=== PATIENT | female | born 1985 | race Caucasian/White ===

== ENCOUNTER 2019-01-05 21:46 | Inpatient (IN) | payer SELFPAY ==
[~2019-01-05] VITALS: Ht 160 cm; Wt 68.5 kg
--- NOTE | 2019-01-05 22:31 | PHYS DOC ---
Past Medical History Past Medical History: Other Additional Past Medical Histor: gestational diabetes Past Surgical History: Tubal ligation Alcohol Use: Rarely Drug Use: None Adult General Chief Complaint Chief Complaint: HEADACHE HPI HPI Interpretation phone used for history 33-year-old female presents to emergency Department with complaints of headache, right facial droop, weakness in her right upper extremity. She states symptoms started around noon today with a headache have been somewhat progressive. She describes a weird sensation in her upper extremity and crampiness. States her arm just feels weak. She does complain of nausea, intermittent chest pain. She feels tired. Nothing makes her symptoms worse or better, she states she has a difference in feeling on her right side compared to the left. She has no history of migraine headaches however states she had a similar headache last week. Review of Systems Review of Systems Constitutional: Denies fever or chills [] Eyes: Denies change in visual acuity, redness, or eye pain [] Respiratory: Denies cough or shortness of breath [] Cardiovascular: No additional information not addressed in HPI [] GI: Denies abdominal pain, +nausea : Denies dysuria or hematuria [] Musculoskeletal: Denies back pain or joint pain [] Integument: Denies rash or skin lesions [] Neurologic: Headache, right facial droop All other systems were reviewed and found to be within normal limits, except as documented in this note. Allergies Allergies Allergies Coded Allergies Type Severity Reaction Last Updated Verified No Known Drug Allergies 02/20/14 No Physical Exam Physical Exam Constitutional: Well developed, well nourished, no acute distress, non-toxic appearance. [] HENT: Normocephalic, atraumatic, bilateral external ears normal, oropharynx moist, no oral exudates, nose normal. [] Eyes: PERRLA, EOMI, conjunctiva normal, no discharge. [] Cardiovascular:Heart rate regular rhythm, no murmur [] Lungs & Thorax: Bilateral breath sounds clear to auscultation [] Abdomen: Bowel sounds normal, soft, no tenderness, no masses, no pulsatile masses. [] Skin: Warm, dry, no erythema, no rash. [] Extremities: No tenderness, no cyanosis, no edema. [] Neurologic: Alert and oriented X 3, no focal deficits noted. See NIHSS[] Psychologic: Affect normal, judgement normal, mood normal. [] Current Patient Data Vital Signs Vital Signs Date Time Temp Pulse Resp B/P (MAP) Pulse Ox O2 Delivery O2 Flow Rate FiO2 01/05/19 22:01 98.1 96 18 155/102 (119) 100 Room Air 98.1 Lab Values Laboratory Tests Test 01/05/19 21:55 White Blood Count 7.4 x10^3/uL (4.0-11.0) Red Blood Count 4.68 x10^6/uL (3.50-5.40) Hemoglobin 14.3 g/dL (12.0-15.5) Hematocrit 41.7 % (36.0-47.0) Mean Corpuscular Volume 89 fL (79-100) Mean Corpuscular Hemoglobin 31 pg (25-35) Mean Corpuscular Hemoglobin Concent 34 g/dL (31-37) Red Cell Distribution Width 13.0 % (11.5-14.5) Platelet Count 317 x10^3/uL (140-400) Neutrophils (%) (Auto) 57 % (31-73) Lymphocytes (%) (Auto) 37 % (24-48) Monocytes (%) (Auto) 5 % (0-9) Eosinophils (%) (Auto) 1 % (0-3) Basophils (%) (Auto) 1 % (0-3) Neutrophils # (Auto) 4.2 x10^3/uL (1.8-7.7) Lymphocytes # (Auto) 2.7 x10^3/uL (1.0-4.8) Monocytes # (Auto) 0.4 x10^3/uL (0.0-1.1) Eosinophils # (Auto) 0.1 x10^3/uL (0.0-0.7) Basophils # (Auto) 0.0 x10^3/uL (0.0-0.2) Laboratory Tests 01/05/19 21:55 EKG EKG EKG reveals normal sinus rhythm, heart rate 75, no evidence of acute ST or T wave change.[] Interpretation Time: Interpretation time 2238 Radiology/Procedures Radiology/Procedures [] Course & Med Decision Making Course & Med Decision Making Pertinent Labs and Imaging studies reviewed. (See chart for details) []33-year-old female presents to emergency Department with complaints of headache, right facial droop, weakness in her right upper extremity. She states symptoms started around noon today with a headache have been somewhat p rogressive. She describes a weird sensation in her upper extremity and crampiness. States her arm just feels weak. She does complain of nausea, intermittent chest pain. She feels tired. Nothing makes her symptoms worse or better, she states she has a difference in feeling on her right side compared to the left. She has no history of migraine headaches however states she had a similar headache last week. Dragon Disclaimer Dragon Disclaimer This electronic medical record was generated, in whole or in part, using a voice recognition dictation system. NIHSS Stroke Scale NIH Stroke Scale: NIH Stroke Scale Response (Comments) Value Level of Consciousness: 0 Alert/Responsive 0 LOC Questions: 0 Answers both correctly 0 LOC Commands: 0 Performs both tasks 0 Best Gaze: 0 Normal 0 Visual: 0 No visual loss 0 Facial Palsy: 2 Partial paralysis 2 Motor - Left Arm 0 No drift 0 Motor - Right Arm 0 No drift 0 Motor - Left Leg 0 No drift 0 Motor: Right Leg 0 No drift 0 Limb Ataxia: 1 One limb 1 Sensory: 0 No loss 0 Best Language: 0 Normal 0 Dysathria: 0 Normal 0 Extinction and Inattention: 0 Normal 0 Total 3 Departure Departure Referrals: NON,STAFF (PCP) ERLIN HO MD Jan 05, 2019 22:31
[2019-01-05 22:43] LABS: BASO % 1 % (0-3); EOS # 0.1 x10^3/uL (0.0-0.7); EOS % 1 % (0-3); HEMATOCRIT 41.7 % (36.0-47.0); HEMOGLOBIN 14.3 g/dL (12.0-15.5); LYMPH # 2.7 x10^3/uL (1.0-4.8); LYMPH % 37 % (24-48); MEAN CORPUSCULAR HEMOGLOBIN 31 pg (25-35); MEAN CORPUSCULAR HGB CONC 34 g/dL (31-37); MEAN CORPUSCULAR VOLUME 89 fL (79-100); MONO # 0.4 x10^3/uL (0.0-1.1); MONO % 5 % (0-9); NEUT # 4.2 x10^3/uL (1.8-7.7); NEUT % 57 % (31-73); PLATELET COUNT 317 x10^3/uL (140-400); RED BLOOD COUNT 4.68 x10^6/uL (3.50-5.40); WHITE BLOOD COUNT 7.4 x10^3/uL (4.0-11.0)
[2019-01-05 22:53] LABS: CALCIUM 9.4 mg/dL (8.5-10.1); CREATININE 0.7 mg/dL (0.6-1.0); GFR 95.8; POTASSIUM 3.3 mmol/L (3.5-5.1)
[2019-01-05 22:59] LABS: ALBUMIN 4.3 g/dL (3.4-5.0); TOTAL BILIRUBIN 0.3 mg/dL (0.2-1.0); TOTAL PROTEIN 8.4 g/dL (6.4-8.2)
--- NOTE | 2019-01-05 23:21 | RAD ---
CT HEAD INDICATION: Right-sided facial droop COMPARISON: 02/20/2014 Exposure: One or more of the following individualized dose reduction techniques were utilized for this examination: 1. Automated exposure control 2. Adjustment of the mA and/or kV according to patient size 3. Use of iterative reconstruction technique TECHNIQUE: 5 mm contiguous axial images were obtained from the skull base to the vertex in both bone and soft tissue algorithm. FINDINGS: No abnormal attenuation within the brain parenchyma. Small left anterior middle cranial fossa arachnoid cyst identified similar to prior exam. No evidence of acute intracranial hemorrhage. No extra-axial fluid collections. No mass effect or midline shift. Ventricular size is appropriate. Basal cisterns are patent. No fractures identified.Bridges-white differentiation is preserved.Globes and orbits are within normal limits. Paranasal sinuses and mastoid air cells are clear. IMPRESSION: No acute intracranial findings. Electronically signed by: Tony Steward MD (01/05/2019 11:18 PM) [facility]
[2019-01-06] MEDS ORDERED: KETOROLAC 30 MG/ML VIAL. IV ONE (00:15)
[2019-01-06] MEDS ORDERED: diphenhydrAMINE 50 MG/ML VIAL IVP ONE (00:15)
[2019-01-06] MEDS ORDERED: METOCLOPRAMIDE HCL 10 MG/2 ML VIAL. IV ONE (00:15)
[2019-01-06] MEDS ORDERED: IV NORMAL SALINE 1000ML BAG 1,000 ML IV ONE (00:45)
[2019-01-06] MEDS ORDERED: ONDANSETRON PF 4 MG/2 ML VIAL. IV PRN (02:00)
[2019-01-06] MEDS ORDERED: ACETAMINOPHEN 325 MG TABLET. PO PRN (02:00)
[2019-01-06] MEDS ORDERED: ASPIRIN 325 MG TABLET PO ONE (02:00)
[2019-01-06 03:00] VITALS: BP 105/68
--- NOTE | 2019-01-06 03:45 | PHYS DOC ---
Past Medical History Past Medical History: Other Additional Past Medical Histor: gestational diabetes Past Surgical History: Tubal ligation Alcohol Use: Rarely Drug Use: None Adult General Chief Complaint Chief Complaint: HEADACHE HPI HPI Interpretation phone used for history 33-year-old female presents to emergency Department with complaints of headache, right facial droop, weakness in her right upper extremity. She states symptoms started around noon today with a headache have been somewhat progressive. She describes a weird sensation in her upper extremity and crampiness. States her arm just feels weak. She does complain of nausea, intermittent chest pain. She feels tired. Nothing makes her symptoms worse or better, she states she has a difference in feeling on her right side compared to the left. She has no history of migraine headaches however states she had a similar headache last week. Review of Systems Review of Systems Constitutional: Denies fever or chills [] Respiratory: Denies cough or shortness of breath [] Cardiovascular: No additional information not addressed in HPI [] GI: + nausea, Denies abdominal pain, vomiting, bloody stools or diarrhea [] : Denies dysuria or hematuria [] Musculoskeletal: Denies back pain or joint pain [] Integument: Denies rash or skin lesions [] Neurologic: + headache, weakness RUE, right facial droop All other systems were reviewed and found to be within normal limits, except as documented in this note. Current Medications Current Medications Current Medications Medications (Trade) Dose Ordered Sig/Soraya Start Time Stop Time Status Last Admin Dose Admin Acetaminophen (Tylenol) 650 mg PRN Q4HRS PRN 01/06/19 02:00 01/07/19 01:59 Aspirin (Latanya Aspirin) 325 mg 1X ONCE 01/06/19 02:00 01/06/19 02:01 DC 01/06/19 03:00 325 MG Diphenhydramine HCl (Benadryl) 25 mg 1X ONCE 01/06/19 00:15 01/06/19 00:17 DC 01/06/19 00:22 25 MG Ketorolac Tromethamine (Toradol 30mg Vial) 30 mg 1X ONCE 01/06/19 00:15 01/06/19 00:17 DC 01/06/19 00:22 30 MG Lorazepam (Ativan Inj) 1 mg 1X ONCE 01/06/19 00:45 01/06/19 00:46 DC 01/06/19 00:43 1 MG Metoclopramide HCl (Reglan Vial) 10 mg 1X ONCE 01/06/19 00:15 01/06/19 00:17 DC 01/06/19 00:22 10 MG Ondansetron HCl (Zofran) 4 mg PRN Q8HRS PRN 01/06/19 02:00 01/07/19 01:59 Sodium Chloride 1,000 ml @ 1,000 mls/hr 1X ONCE 01/06/19 00:45 01/06/19 01:44 DC 01/06/19 00:44 1,000 MLS/HR Allergies Allergies Allergies Coded Allergies Type Severity Reaction Last Updated Verified No Known Drug Allergies 02/20/14 No Physical Exam Physical Exam Constitutional: Well developed, well nourished, no acute distress, non-toxic appearance. [] HENT: Normocephalic, atraumatic, bilateral external ears normal, oropharynx moist, no oral exudates, nose normal. [] Eyes: PERRLA, EOMI, conjunctiva normal, no discharge. [] Cardiovascular:Heart rate regular rhythm, no murmur [] Lungs & Thorax: Bilateral breath sounds clear to auscultation [] Abdomen: Bowel sounds normal, soft, no tenderness, no masses, no pulsatile masses. [] Skin: Warm, dry, no erythema, no rash. [] Extremities: No tenderness, no cyanosis, no clubbing, ROM intact, no edema. [] Neurologic: Alert and oriented X 3, right upper extremity weakness, right facial droop[] Psychologic: Affect normal, judgement normal, mood normal. [] Current Patient Data Vital Signs Vital Signs Date Time Temp Pulse Resp B/P (MAP) Pulse Ox O2 Delivery O2 Flow Rate FiO2 01/06/19 01:54 86 18 97 01/05/19 22:01 98.1 155/102 (119) Room Air 98.1 Lab Values Laboratory Tests Test 01/05/19 21:55 White Blood Count 7.4 x10^3/uL (4.0-11.0) Red Blood Count 4.68 x10^6/uL (3.50-5.40) Hemoglobin 14.3 g/dL (12.0-15.5) Hematocrit 41.7 % (36.0-47.0) Mean Corpuscular Volume 89 fL (79-100) Mean Corpuscular Hemoglobin 31 pg (25-35) Mean Corpuscular Hemoglobin Concent 34 g/dL (31-37) Red Cell Distribution Width 13.0 % (11.5-14.5) Platelet Count 317 x10^3/uL (140-400) Neutrophils (%) (Auto) 57 % (31-73) Lymphocytes (%) (Auto) 37 % (24-48) Monocytes (%) (Auto) 5 % (0-9) Eosinophils (%) (Auto) 1 % (0-3) Basophils (%) (Auto) 1 % (0-3) Neutrophils # (Auto) 4.2 x10^3/uL (1.8-7.7) Lymphocytes # (Auto) 2.7 x10^3/uL (1.0-4.8) Monocytes # (Auto) 0.4 x10^3/uL (0.0-1.1) Eosinophils # (Auto) 0.1 x10^3/uL (0.0-0.7) Basophils # (Auto) 0.0 x10^3/uL (0.0-0.2) Sodium Level 140 mmol/L (136-145) Potassium Level 3.3 mmol/L (3.5-5.1) L Chloride Level 101 mmol/L (98-107) Carbon Dioxide Level 29 mmol/L (21-32) Anion Gap 10 (6-14) Blood Urea Nitrogen 14 mg/dL (7-20) Creatinine 0.7 mg/dL (0.6-1.0) Estimated GFR (Cockcroft-Gault) 95.8 BUN/Creatinine Ratio 20 (6-20) Glucose Level 95 mg/dL (70-99) Calcium Level 9.4 mg/dL (8.5-10.1) Total Bilirubin 0.3 mg/dL (0.2-1.0) Aspartate Amino Transferase (AST) 15 U/L (15-37) Alanine Aminotransferase (ALT) 18 U/L (14-59) Alkaline Phosphatase 110 U/L (46-116) Troponin I Quantitative < 0.017 ng/mL (0.000-0.055) Total Protein 8.4 g/dL (6.4-8.2) H Albumin 4.3 g/dL (3.4-5.0) Albumin/Globulin Ratio 1.0 (1.0-1.7) Laboratory Tests 01/05/19 21:55 Laboratory Tests 01/05/19 21:55 EKG EKG []EKG reveals normal sinus rhythm, heart rate 75, no evidence of acute ST or T wave change.[] Interpretation Time: 2238 Radiology/Procedures Radiology/Procedures [facility] [address] [place] [address] IMAGING REPORT Signed PATIENT: YUNI WATKINS ACCOUNT: [id number] : 1985 LOCATION: ER AGE: 33 SEX: F EXAM STATUS: REG ER ORD. PHYSICIAN: ERLIN HO MD REASON: right facial droop, right upper ext weakness onest around noon PROCEDURE: CT HEAD WO CONTRAST CT HEAD INDICATION: Right-sided facial droop COMPARISON: 02/20/2014 Exposure: One or more of the following individualized dose reduction techniques were utilized for this examination: 1. Automated exposure control 2. Adjustment of the mA and/or kV according to patient size 3. Use of iterative reconstruction technique TECHNIQUE: 5 mm contiguous axial images were obtained from the skull base to the vertex in both bone and soft tissue algorithm. FINDINGS: No abnormal attenuation within the brain parenchyma. Small left anterior middle cranial fossa arachnoid cyst identified similar to prior exam. No evidence of acute intracranial hemorrhage. No extra-axial fluid collections. No mass effect or midline shift. Ventricular size is appropriate. Basal cisterns are patent. No fractures identified.Bridges-white differentiation is preserved.Globes and orbits are within normal limits. Paranasal sinuses and mastoid air cells are clear. IMPRESSION: No acute intracranial findings. Electronically signed by: Tony Steward MD (01/05/2019 11:18 PM) [facility] DICTATED and SIGNED BY: TONY STEWARD MD DATE: 01/05/19 2318 [] Course & Med Decision Making Course & Med Decision Making Pertinent Labs and Imaging studies reviewed. (See chart for details) []33-year-old female presents to emergency Department with complaints of headache, right facial droop, weakness in her right upper extremity. She states symptoms started around noon today with a headache have been somewhat progressive. She describes a weird sensation in her upper extremity and crampiness. States her arm just feels weak. She does complain of nausea, intermittent chest pain. She feels tired. Nothing makes her symptoms worse or better, she states she has a difference in feeling on her right side compared to the left. She has no history of migraine headaches however states she had a similar headache last week. Labs, imaging reviewed. CT head without acute process. Given patient's symptoms Toradol, Reglan, Benadryl provided. Patient's headache and a facial droop improved however she continued to have right upper chest area weakness. Given her continued symptoms would recommend further evaluation and observation. Ca rdiac enzymes �1 set negative. EKG as discussed above. Symptoms again likely secondary to complex migraine however given persistent symptoms would need further imaging to rule out stroke. Admit to HOSPITALIST. Abebe Disclaimer Abebe Disclaimer This electronic medical record was generated, in whole or in part, using a voice recognition dictation system. Departure Departure Impression: Primary Impression: Chest pain Additional Impressions: RUE weakness Facial droop Migraine Disposition: ADMITTED INPATIENT Admitting Physician: HIMMarcos Condition: IMPROVED Referrals: NO PCP (PCP) Problem Qualifiers Primary Impression: Chest pain Chest pain type: unspecified Qualified Codes: R07.9 - Chest pain, unspecified Additional Impressions: Migraine Migraine type: unspecified Status migrainosus presence: without status migrainosus Intractability: not intractable Qualified Codes: G43.909 - Migraine, unspecified, not intractable, without status migrainosus ERLIN HO MD Jan 06, 2019 03:45
[2019-01-06] MEDS ORDERED: no home meds (04:35)
[2019-01-06] MEDS ORDERED: INFLUENZA VAX SCREEN BY RX. MC PRN (05:30)
[2019-01-06 07:32] VITALS: BP 102/63
--- NOTE | 2019-01-06 08:04 | PDOC1 ---
History and Physical Date of Admission Date of Admission DATE: 01/06/19 TIME: 07:59 Identification/Chief Complaint Chief Complaint Chest pain, facial droop, RUE weak Source Source: Patient History of Present Illness History of Present Illness Ms Vera is a 33yo F w/ PMHx gestational DM who presents to ED c/o headache, right facial droop, weakness in her right upper extremity. She states symptoms started around noon 01/05 with a headache have been somewhat progressive. She describes a weird sensation in her upper extremity and cramping with pain in her shoulder. States her arm just feels weak. She does complain of nausea, intermittent chest pain. She feels tired. Nothing makes her symptoms worse or better, she states she has a difference in feeling on her right side compared to the left including arm and leg. Her headache is right sided, temporal and occipital. She has decreased sensation on the left side of her face and left facial droop. She has no history of migraine headaches however states she had a similar headache last week. K 3.3, otherwise labs WNL. CXR with no acute abnormality. CT head without acute process. EKG was NSR with no ST or T-wave changes. Cardiac enzymes �1 set negative. ED administered Toradol, Reglan, Benadryl provided. Patient's headache and a facial droop improved however she continued to have right upper chest area weakness. Given her continued symptoms she was admitted for further evaluation and observation. Past Medical History Cardiovascular: No pertinent hx Pulmonary: No pertinent hx GI: No pertinent hx Heme/Onc: No pertinent hx Hepatobiliary: No pertinent hx Psych: No pertinent hx Rheumatologic: No pertinent hx Infectious disease: No pertinent hx ENT: No pertinent hx Renal/: No pertinent hx Endocrine: No pertinent hx Dermatology: No pertinent hx Family History Family History: Diabetes, High Cholestrol, Hypertension Social History Smoke: No ALCOHOL: none Drugs: None Current Problem List Problem List Problems Medical Problems: (1) Chest pain Status: Acute (2) Facial droop Status: Acute (3) Migraine Status: Acute (4) RUE weakness Status: Acute Current Medications Current Medications Current Medications Ketorolac Tromethamine (Toradol 30mg Vial) 30 mg 1X ONCE IV Last administered on 01/06/19at 00:22; Start 01/06/19 at 00:15; Stop 01/06/19 at 00:17; Status DC Metoclopramide HCl (Reglan Vial) 10 mg 1X ONCE IV Last administered on 01/06/19at 00:22; Start 01/06/19 at 00:15; Stop 01/06/19 at 00:17; Status DC Diphenhydramine HCl (Benadryl) 25 mg 1X ONCE IVP Last administered on 01/06/19at 00:22; Start 01/06/19 at 00:15; Stop 01/06/19 at 00:17; Status DC Lorazepam (Ativan Inj) 2 mg STK-MED ONCE .ROUTE ; Start 01/06/19 at 00:35; Stop 01/06/19 at 00:35; Status DC Lorazepam (Ativan Inj) 1 mg 1X ONCE IV Last administered on 01/06/19at 00:43; Start 01/06/19 at 00:45; Stop 01/06/19 at 00:46; Status DC Sodium Chloride 1,000 ml @ 1,000 mls/hr 1X ONCE IV Last administered on 01/06/19at 00:44; Start 01/06/19 at 00:45; Stop 01/06/19 at 01:44; Status DC Ondansetron HCl (Zofran) 4 mg PRN Q8HRS PRN IV NAUSEA/VOMITING; Start 01/06/19 at 02:00; Stop 01/07/19 at 01:59 Acetaminophen (Tylenol) 650 mg PRN Q4HRS PRN PO FEVER; Start 01/06/19 at 02:00; Stop 01/07/19 at 01:59 Aspirin (Latanya Aspirin) 325 mg 1X ONCE PO Last administered on 01/06/19at 03:00; Start 01/06/19 at 02:00; Stop 01/06/19 at 02:01; Status DC Influenza Virus Vaccine Quadrival (Afluria Quad 2019-20 (3yr Up) Syringe) 0.5 ml ONCE ONCE VAX IM ; Start 01/06/19 at 09:00; Stop 01/06/19 at 09:01 Info (FLU VACCINE SCREEN per RX) 1 each PRN 1X PRN MC SEE COMMENTS; Start 01/06/19 at 05:30; Status Cancel Active Scripts Active Reported [no home meds] Allergies Allergies: Coded Allergies: No Known Drug Allergies (Unverified , 02/20/14) ROS General: YES: Fatigue, Malaise; No: Chills, Night Sweats, Appetite, Other PSYCHOLOGICAL ROS: YES: Anxiety; No: Behavioral Disorder, Concentration difficultie, Decreased libido, Depress ion, Disorientation, Hallucinations, Hostility, Irritablity, Memory difficulties, Mood Swings, Obsessive thoughts, Physical abuse, Sexual abuse, Sleep disturbances, Suicidal ideation, Other Eyes: No Blurry vision, No Decreased vision, No Double vision, No Dry eyes, No Excessive tearing, No Eye Pain, No Itchy Eyes, No Loss of vision, No Photophobia, No Scotomata, No Uses contacts, No Uses glasses, No Other HEENT: YES: Heacaches; No: Visual Changes, Hearing change, Nasal congestion, Nasal discharge, Oral lesions, Sinus pain, Sore Throat, Epistaxis, Sneezing, Snoring, Tinnitus, Vertigo, Vocal changes, Other ALLERGY AND IMMUNOLOGY: No: Hives, Insect Bite Sensitivity, Itchy/Watery Eyes, Nasal Congestion, Post Nasal Drip, Seasonal Allergies, Other Hematological and Lymphatic: No: Bleeding Problems, Blood Clots, Blood Transfusions, Brusing, Night Sweats, Pallor, Swollen Lymph Nodes, Other ENDOCRINE: No: Breast Changes, Galactorrhea, Hair Pattern Changes, Hot Flashes, Malaise/lethargy, Mood Swings, Palpitations, Polydipsia/polyuria, Skin Changes, Temperature Intolerance, Unexpected Weight Changes, Other Breast: No New/Changing Breast Lumps, No Nipple changes, No Nipple discharge, No Other Respiratory: No: Cough, Hemoptysis, Orthopnea, Pleuritic Pain, Shortness of breath, SOB with excertion, Sputum Changes, Stridor, Tachypnea, Wheezing, Other Cardiovascular: No Chest Pain, No Palpitations, No Orthopnea, No Paroxysmal Noc. Dyspnea, No Edema, No Lt Headedness, No Other Gastrointestinal: No Nausea, No Vomiting, No Abdominal Pain, No Diarrhea, No Constipation, No Melena, No Hematochezia, No Other Genitourinary: No Dysuria, No Frequency, No Incontinence, No Hematuria, No Retention, No Discharge, No Urgency, No Pain, No Flank Pain, No Other, No , No , No , No , No , No , No Musculoskeletal: Yes Gait Disturbance; No Joint Pain, No Joint Stiffness, No Joint Swelling, No Muscle Pain, No Muscular Weakness, No Pain In:, No Swelling In:, No Other Neurological: Yes Gait Disturbance, Yes Headaches, Yes Impaired Coord/balance, Yes Numbness/Tingling, Yes Weakness; No Behavorial Changes, No Bowel/Bladder ControlChng, No Confusion, No Dizziness, No Memory Loss, No Seizures, No Speech Problems, No Tremors, No Visual Changes, No Other Skin: No Dry Skin, No Eczema, No Hair Changes, No Lumps, No Mole Changes, No Mottling, No Nail Changes, No Pruritus, No Rash, No Skin Lesion Changes, No Other, No Acne Physical Exam General: Alert, Oriented X3, Cooperative, No acute distress HEENT: Atraumatic, PERRLA, EOMI, Mucous membr. moist/pink Lungs: Clear to auscultation, Normal air movement Heart: S1S2, RRR, no gallops, no murmurs Abdomen: Normal bowel sounds, Soft, No tenderness, No hepatosplenomegaly, No masses Rectal Exam: not examined Extremities: No clubbing, No cyanosis, No edema, Normal pulses, No tenderness/swelling, Other (Pain on palpation of right shoulder) Skin: No rashes, No breakdown, No significant lesion Neuro: Normal speech, Normal tone, Reflexes 2+, Other (Decreased left facial sensation and strength. Decreased right awnings mechanic strength. Unsteady gait with poor coordination of right leg noted) Psych/Mental Status: Mental status NL, Mood NL Vitals Vitals Vital Signs Date Time Temp Pulse Resp B/P (MAP) Pulse Ox O2 Delivery O2 Flow Rate FiO2 01/06/19 07:32 98.0 78 18 102/63 (76) 100 Room Air 98.0 Labs Labs Laboratory Tests Test 01/05/19 21:55 01/06/19 03:30 White Blood Count 7.4 x10^3/uL (4.0-11.0) Red Blood Count 4.68 x10^6/uL (3.50-5.40) Hemoglobin 14.3 g/dL (12.0-15.5) Hematocrit 41.7 % (36.0-47.0) Mean Corpuscular Volume 89 fL (79-100) Mean Corpuscular Hemoglobin 31 pg (25-35) Mean Corpuscular Hemoglobin Concent 34 g/dL (31-37) Red Cell Distribution Width 13.0 % (11.5-14.5) Platelet Count 317 x10^3/uL (140-400) Neutrophils (%) (Auto) 57 % (31-73) Lymphocytes (%) (Auto) 37 % (24-48) Monocytes (%) (Auto) 5 % (0-9) Eosinophils (%) (Auto) 1 % (0-3) Basophils (%) (Auto) 1 % (0-3) Neutrophils # (Auto) 4.2 x10^3/uL (1.8-7.7) Lymphocytes # (Auto) 2.7 x10^3/uL (1.0-4.8) Monocytes # (Auto) 0.4 x10^3/uL (0.0-1.1) Eosinophils # (Auto) 0.1 x10^3/uL (0.0-0.7) Basophils # (Auto) 0.0 x10^3/uL (0.0-0.2) Sodium Level 140 mmol/L (136-145) Potassium Level 3.3 mmol/L (3.5-5.1) Chloride Level 101 mmol/L (98-107) Carbon Dioxide Level 29 mmol/L (21-32) Anion Gap 10 (6-14) Blood Urea Nitrogen 14 mg/dL (7-20) Creatinine 0.7 mg/dL (0.6-1.0) Estimated GFR (Cockcroft-Gault) 95.8 BUN/Creatinine Ratio 20 (6-20) Glucose Level 95 mg/dL (70-99) Calcium Level 9.4 mg/dL (8.5-10.1) Total Bilirubin 0.3 mg/dL (0.2-1.0) Aspartate Amino Transf (AST/SGOT) 15 U/L (15-37) Alanine Aminotransferase (ALT/SGPT) 18 U/L (14-59) Alkaline Phosphatase 110 U/L (46-116) Troponin I Quantitative < 0.017 ng/mL (0.000-0.055) < 0.017 ng/mL (0.000-0.055) Total Protein 8.4 g/dL (6.4-8.2) Albumin 4.3 g/dL (3.4-5.0) Albumin/Globulin Ratio 1.0 (1.0-1.7) Laboratory Tests Test 01/05/19 21:55 01/06/19 03:30 White Blood Count 7.4 x10^3/uL (4.0-11.0) Red Blood Count 4.68 x10^6/uL (3.50-5.40) Hemoglobin 14.3 g/dL (12.0-15.5) Hematocrit 41.7 % (36.0-47.0) Mean Corpuscular Volume 89 fL (79-100) Mean Corpuscular Hemoglobin 31 pg (25-35) Mean Corpuscular Hemoglobin Concent 34 g/dL (31-37) Red Cell Distribution Width 13.0 % (11.5-14.5) Platelet Count 317 x10^3/uL (140-400) Neutrophils (%) (Auto) 57 % (31-73) Lymphocytes (%) (Auto) 37 % (24-48) Monocytes (%) (Auto) 5 % (0-9) Eosinophils (%) (Auto) 1 % (0-3) Basophils (%) (Auto) 1 % (0-3) Neutrophils # (Auto) 4.2 x10^3/uL (1.8-7.7) Lymphocytes # (Auto) 2.7 x10^3/uL (1.0-4.8) Monocytes # (Auto) 0.4 x10^3/uL (0.0-1.1) Eosinophils # (Auto) 0.1 x10^3/uL (0.0-0.7) Basophils # (Auto) 0.0 x10^3/uL (0.0-0.2) Sodium Level 140 mmol/L (136-145) Potassium Level 3.3 mmol/L (3.5-5.1) Chloride Level 101 mmol/L (98-107) Carbon Dioxide Level 29 mmol/L (21-32) Anion Gap 10 (6-14) Blood Urea Nitrogen 14 mg/dL (7-20) Creatinine 0.7 mg/dL (0.6-1.0) Estimated GFR (Cockcroft-Gault) 95.8 BUN/Creatinine Ratio 20 (6-20) Glucose Level 95 mg/dL (70-99) Calcium Level 9.4 mg/dL (8.5-10.1) Total Bilirubin 0.3 mg/dL (0.2-1.0) Aspartate Amino Transf (AST/SGOT) 15 U/L (15-37) Alanine Aminotransferase (ALT/SGPT) 18 U/L (14-59) Alkaline Phosphatase 110 U/L (46-116) Troponin I Quantitative < 0.017 ng/mL (0.000-0.055) < 0.017 ng/mL (0.000-0.055) Total Protein 8.4 g/dL (6.4-8.2) Albumin 4.3 g/dL (3.4-5.0) Albumin/Globulin Ratio 1.0 (1.0-1.7) Images Images CT head - No acute intracranial findings. VTE Prophylaxis Ordered VTE Prophylaxis Devices: No VTE Pharmacological Prophylaxi: No Assessment/Plan Assessment/Plan A/P: RUE weakness - possibly multifactorial with complex migraine, electrolyte disturbance, consider acute TIA or CVA. However, her symptoms began more than 18 hours ago. On ASA and statin. Will consult neurology given her symptoms Headache - likely secondary to complex migraine however given persistent symptoms possibly would need further imaging to rule out stroke. Facial droop - likely from complex migraine H/o gestational diabetes - normoglycemia Hypokalemia - will check mag level. Replace K FEN - General diet PPX - Ambulatory FULL CODE Dispo - observation for likely complicated migraine. CHAPO LAZARO MD Jan 06, 2019 08:04
[2019-01-06 08:17] LABS: PHOSPHORUS 3.7 mg/dL (2.6-4.7)
[2019-01-06] MEDS ORDERED: FLU VAX QS 2019-20 (36MOS+)/PF 0.5 ML SYRINGE. VAX IM ONE (09:00)
[2019-01-06] MEDS ORDERED: diazePAM 5 MG TABLET PO ONE (11:45)
--- NOTE | 2019-01-06 11:50 | PDOC2 ---
NEUROLOGY CONSULT Date of Admission Date of Admission DATE: 01/06/19 TIME: 11:42 Reason for Consult Reason for Consult: Stroke symptoms Referring Physician Referring Physician: Dr. Abernathy Source Source: Chart review, Patient History of Present Illness History of Present Illness The patient is a 33-year-old right-handed female who about noon yesterday noticed the onset of a right-sided headache and neck pain along with right-sided weakness. She came to the emergency department this morning. I asked her about stress in her life and she says that one of her sons is hospitalized in a [facility]. She is feeling better now. She does not have a history of headaches. There is no history of stroke, seizure, or head injury. She has not figured out any inciting or mitigating features otherwise. Past Medical History Endocrine: Diabetes (gestational) Past Surgical History Past Surgical History: Tubal Ligation Family History Family History: No pertinent hx (no history of stroke) Social History Social History , 5 children, does not work outside the home, no alcohol, tobacco, street drugs. Current Medications Current Medications Current Medications Ketorolac Tromethamine (Toradol 30mg Vial) 30 mg 1X ONCE IV Last administered on 01/06/19at 00:22; Start 01/06/19 at 00:15; Stop 01/06/19 at 00:17; Status DC Metoclopramide HCl (Reglan Vial) 10 mg 1X ONCE IV Last administered on 01/06/19at 00:22; Start 01/06/19 at 00:15; Stop 01/06/19 at 00:17; Status DC Diphenhydramine HCl (Benadryl) 25 mg 1X ONCE IVP Last administered on at 00:22; Start 01/06/19 at 00:15; Stop 01/06/19 at 00:17; Status DC Lorazepam (Ativan Inj) 2 mg STK-MED ONCE .ROUTE ; Start 01/06/19 at 00:35; Stop 01/06/19 at 00:35; Status DC Lorazepam (Ativan Inj) 1 mg 1X ONCE IV Last administered on 01/06/19at 00:43; Start 01/06/19 at 00:45; Stop 01/06/19 at 00:46; Status DC Sodium Chloride 1,000 ml @ 1,000 mls/hr 1X ONCE IV Last administered on 01/06/19at 00:44; Start 01/06/19 at 00:45; Stop 01/06/19 at 01:44; Status DC Ondansetron HCl (Zofran) 4 mg PRN Q8HRS PRN IV NAUSEA/VOMITING; Start 01/06/19 at 02:00; Stop 01/07/19 at 01:59 Acetaminophen (Tylenol) 650 mg PRN Q4HRS PRN PO FEVER; Start 01/06/19 at 02:00; Stop 01/07/19 at 01:59 Aspirin (Latanya Aspirin) 325 mg 1X ONCE PO Last administered on 01/06/19at 03:00; Start 01/06/19 at 02:00; Stop 01/06/19 at 02:01; Status DC Influenza Virus Vaccine Quadrival (Afluria Quad 2019-20 (3yr Up) Syringe) 0.5 ml ONCE ONCE VAX IM ; Start 01/06/19 at 09:00; Stop 01/06/19 at 09:01; Status DC Info (FLU VACCINE SCREEN per RX) 1 each PRN 1X PRN MC SEE COMMENTS; Start 01/06/19 at 05:30; Status Cancel Ketorolac Tromethamine (Toradol 30mg Vial) 30 mg PRN Q6HRS PRN IV PAIN; Start 01/06/19 at 11:00; Stop 01/11/19 at 10:59 Active Scripts Active Reported [no home meds] Allergies Allergies: Coded Allergies: No Known Drug Allergies (Unverified , 02/20/14) ROS Review of System Negative for fever, chills, weight loss, shortness of breath, chest pain, indigestion, hematochezia, melena, and dysuria. Full 14-point review of systems is negative. Physical Exam Physical Examination General: Well-developed, well-nourished female in no acute distress HEENT: Normocephalic and�atraumatic. �Temporal arteries�pulsatile and nontender.�Fundoscopic exam unremarkable Neck: Supple without bruit, no meningismus� Musculoskeletal: Stability:�see neurologic. Gait exam:�see neurologic. Tone:�see neurologic .�Strength:�see neurologic.� Neurological: Mental Status:�intact, orientation, memory, attention span/concentration, language, fund of knowledge normal. Cranial Nerves:�Pupils equal and reactive to light, extraocular movements are�intact, visual deras are full to confrontation. Facial sensation is normal. There is no facial asymmetry. Vestibulo-ocular reflex is intact. Palate elevates and tongue protrudes in midline. All other cranial related problems are negative except as mentioned before.�Reflexes:�2+ and symmetric with flexor plantar responses. Motor:�give- way weakness on right side, no pronator drift with normal tone and bulk. Coordination:�Finger-nose finger and [id number] testing are normal. Rapid alternating movements and fine finger movements are intact. Gait:consistent with nonorganic disease. Sensory:�patchy right hemisensory loss.� Vitals VITALS Vital Signs Date Time Temp Pulse Resp B/P (MAP) Pulse Ox O2 Delivery O2 Flow Rate FiO2 01/06/19 07:32 98.0 78 18 102/63 (76) 100 Room Air 98.0 Labs Labs Laboratory Tests Test 01/05/19 21:55 01/06/19 03:30 White Blood Count 7.4 x10^3/uL (4.0-11.0) Red Blood Count 4.68 x10^6/uL (3.50-5.40) Hemoglobin 14.3 g/dL (12.0-15.5) Hematocrit 41.7 % (36.0-47.0) Mean Corpuscular Volume 89 fL (79-100) Mean Corpuscular Hemoglobin 31 pg (25-35) Mean Corpuscular Hemoglobin Concent 34 g/dL (31-37) Red Cell Distribution Width 13.0 % (11.5-14.5) Platelet Count 317 x10^3/uL (140-400) Neutrophils (%) (Auto) 57 % (31-73) Lymphocytes (%) (Auto) 37 % (24-48) Monocytes (%) (Auto) 5 % (0-9) Eosinophils (%) (Auto) 1 % (0-3) Basophils (%) (Auto) 1 % (0-3) Neutrophils # (Auto) 4.2 x10^3/uL (1.8-7.7) Lymphocytes # (Auto) 2.7 x10^3/uL (1.0-4.8) Monocytes # (Auto) 0.4 x10^3/uL (0.0-1.1) Eosinophils # (Auto) 0.1 x10^3/uL (0.0-0.7) Basophils # (Auto) 0.0 x10^3/uL (0.0-0.2) Sodium Level 140 mmol/L (136-145) Potassium Level 3.3 mmol/L (3.5-5.1) Chloride Level 101 mmol/L (98-107) Carbon Dioxide Level 29 mmol/L (21-32) Anion Gap 10 (6-14) Blood Urea Nitrogen 14 mg/dL (7-20) Creatinine 0.7 mg/dL (0.6-1.0) Estimated GFR (Cockcroft-Gault) 95.8 BUN/Creatinine Ratio 20 (6-20) Glucose Level 95 mg/dL (70-99) Calcium Level 9.4 mg/dL (8.5-10.1) Total Bilirubin 0.3 mg/dL (0.2-1.0) Aspartate Amino Transf (AST/SGOT) 15 U/L (15-37) Alanine Aminotransferase (ALT/SGPT) 18 U/L (14-59) Alkaline Phosphatase 110 U/L (46-116) Troponin I Quantitative < 0.017 ng/mL (0.000-0.055) < 0.017 ng/mL (0.000-0.055) Total Protein 8.4 g/dL (6.4-8.2) Albumin 4.3 g/dL (3.4-5.0) Albumin/Globulin Ratio 1.0 (1.0-1.7) Phosphorus Level 3.7 mg/dL (2.6-4.7) Magnesium Level 2.0 mg/dL (1.8-2.4) Laboratory Tests Test 01/05/19 21:55 01/06/19 03:30 White Blood Count 7.4 x10^3/uL (4.0-11.0) Red Blood Count 4.68 x10^6/uL (3.50-5.40) Hemoglobin 14.3 g/dL (12.0-15.5) Hematocrit 41.7 % (36.0-47.0) Mean Corpuscular Volume 89 fL (79-100) Mean Corpuscular Hemoglobin 31 pg (25-35) Mean Corpuscular Hemoglobin Concent 34 g/dL (31-37) Red Cell Distribution Width 13.0 % (11.5-14.5) Platelet Count 317 x10^3/uL (140-400) Neutrophils (%) (Auto) 57 % (31-73) Lymphocytes (%) (Auto) 37 % (24-48) Monocytes (%) (Auto) 5 % (0-9) Eosinophils (%) (Auto) 1 % (0-3) Basophils (%) (Auto) 1 % (0-3) Neutrophils # (Auto) 4.2 x10^3/uL (1.8-7.7) Lymphocytes # (Auto) 2.7 x10^3/uL (1.0-4.8) Monocytes # (Auto) 0.4 x10^3/uL (0.0-1.1) Eosinophils # (Auto) 0.1 x10^3/uL (0.0-0.7) Basophils # (Auto) 0.0 x10^3/uL (0.0-0.2) Sodium Level 140 mmol/L (136-145) Potassium Level 3.3 mmol/L (3.5-5.1) Chloride Level 101 mmol/L (98-107) Carbon Dioxide Level 29 mmol/L (21-32) Anion Gap 10 (6-14) Blood Urea Nitrogen 14 mg/dL (7-20) Creatinine 0.7 mg/dL (0.6-1.0) Estimated GFR (Cockcroft-Gault) 95.8 BUN/Creatinine Ratio 20 (6-20) Glucose Level 95 mg/dL (70-99) Calcium Level 9.4 mg/dL (8.5-10.1) Total Bilirubin 0.3 mg/dL (0.2-1.0) Aspartate Amino Transf (AST/SGOT) 15 U/L (15-37) Alanine Aminotransferase (ALT/SGPT) 18 U/L (14-59) Alkaline Phosphatase 110 U/L (46-116) Troponin I Quantitative < 0.017 ng/mL (0.000-0.055) < 0.017 ng/mL (0.000-0.055) Total Protein 8.4 g/dL (6.4-8.2) Albumin 4.3 g/dL (3.4-5.0) Albumin/Globulin Ratio 1.0 (1.0-1.7) Phosphorus Level 3.7 mg/dL (2.6-4.7) Magnesium Level 2.0 mg/dL (1.8-2.4) Images Images CT HEAD, 01/06/19 No abnormal attenuation within the brain parenchyma. Small left anterior middle cranial fossa arachnoid cyst identified similar to prior exam. No evidence of acute intracranial hemorrhage. No extra-axial fluid collections. No mass effect or midline shift. Ventricular size is appropriate. Basal cisterns are patent. No fractures identified.Bridges-white differentiation is preserved.Globes and orbits are within normal limits. Paranasal sinuses and mastoid air cells are clear. IMPRESSION: No acute intracranial findings. Assessment/Plan Assessment/Plan Impression: High suspicion for conversion reaction, keep in mind the possibility of migraine phenomenon and an actual stroke. Recommendations: MRI of the brain Rehabilitation modalities CT angiogram Simple analgesics for pain She requires Valium sedation for the MRI. Further tests or treatment depending on results of these tests. If they are negative, outpatient psychiatric referral. Thank you for letting me help with the patient's care. NAEEM GIORDANO MD Jan 06, 2019 11:50
[2019-01-06 11:57] VITALS: BP 95/60
[2019-01-06] MEDS ORDERED: IOHEXOL 300 MG/ML 100ML VIAL. IV ONE (12:15)
[2019-01-06] MEDS ORDERED: CONTRAST GIVEN. MC PRN (12:15)
[2019-01-06] MEDS: KETOROLAC 30 MG/ML VIAL. IV PRN ×2 (13:09→21:25)
[2019-01-06 15:46] VITALS: BP 104/63
--- NOTE | 2019-01-06 17:08 | RAD ---
EXAMINATION: Magnetic resonance imaging (MRI) of the brain and brainstem without contrast 01/06/2019 11:45 AM HISTORY: Headache with right-sided weakness and numbness TECHNIQUE: Multiplanar multi-weighted MRI of the brain and brainstem was performed without intravenous contrast using the general brain protocol. COMPARISON: None available. FINDINGS: The scalp and calvarium are normal. The superior sagittal sinus demonstrates normal venous flow. The corpus callosum is normal in shape and signal intensity. The posterior fossa is unremarkable. The pituitary and sella are normal. The brainstem and craniocervical junction are unremarkable. There is suggestion of an extra-axial cyst involving the left mild cranial fossa measuring 2.5 x 2.6 x 2.4 cm (AP by transverse by craniocaudal). This finding demonstrates CSF signal intensity on all sequences suggestive of an arachnoid cyst. There is mild volume loss involving the left ventral temporal lobe. Diffusion weighted images reveal no hyperintensities to suggest acute cerebral infarction. The susceptibility weighted sequences reveal no evidence of acute or chronic hemorrhage. The ventricles are normal in size and position without evidence of hydrocephalus. Mild mucosal thickening of the maxillary sinuses. The visualized portions of the mastoids are unremarkable. The orbits appear normal. Normal flow voids are demonstrated in the carotid arteries and basilar artery. IMPRESSION: 1. No evidence for acute or subacute ischemia. 2. Small extra-axial cyst in the left middle cranial fossa, most suggestive of an arachnoid cyst. Electronically signed by: Cally Hobbs MD (01/06/2019 5:05 PM) [facility]
--- NOTE | 2019-01-06 18:17 | NUR ---
pt did not pass the Mann Bedside swallow, her weaknesses were the symmetrical facil movements and whenever she tried to swallow she would grimace and state that her right side of her face was pulling tight and it hurt. I explained that if it hurt to just drink the water that it would really hurt to eat food. sending a swallow test to speechtherapy. Andrew Tsang RN
[2019-01-06 19:37] VITALS: BP 118/74
[2019-01-06 23:06] VITALS: BP 111/64
[2019-01-07 03:21] VITALS: BP 106/65
[2019-01-07 03:49] LABS: BASO % 1 % (0-3); EOS % 1 % (0-3); HEMATOCRIT 36.7 % (36.0-47.0); HEMOGLOBIN 12.6 g/dL (12.0-15.5); LYMPH # 1.7 x10^3/uL (1.0-4.8); LYMPH % 42 % (24-48); MEAN CORPUSCULAR HEMOGLOBIN 30 pg (25-35); MEAN CORPUSCULAR HGB CONC 34 g/dL (31-37); MEAN CORPUSCULAR VOLUME 88 fL (79-100); MONO # 0.3 x10^3/uL (0.0-1.1); MONO % 7 % (0-9); NEUT % 50 % (31-73); PLATELET COUNT 255 x10^3/uL (140-400); RED BLOOD COUNT 4.16 x10^6/uL (3.50-5.40); RED CELL DISTRIBUTION WIDTH 12.7 % (11.5-14.5)
[2019-01-07 04:11] LABS: ALBUMIN 3.3 g/dL (3.4-5.0); CALCIUM 8.4 mg/dL (8.5-10.1); CREATININE 0.6 mg/dL (0.6-1.0); GFR 114.4; POTASSIUM 3.3 mmol/L (3.5-5.1); TOTAL BILIRUBIN 0.6 mg/dL (0.2-1.0); TOTAL PROTEIN 6.7 g/dL (6.4-8.2)
[2019-01-07 04:18] LABS: CHOLESTEROL/HDL RATIO 5.3
--- NOTE | 2019-01-07 06:13 | EKG ---
[facility] [address] [place] [address] Test Date: 2019-01-05 Test Time: 22:36:48 Pat Name: YUNI WATKINS Department: Room: Gender: F Telemarketing Agent: : [id number] Requested By: ERLIN HO Order Number: [id number] Reading MD: Measurements Intervals Dewey Rate: 74 P: 29 AK: 138 QRS: 46 QRSD: 84 T: 35 QT: 368 QTc: 413 Interpretive Statements SINUS RHYTHM NON SPECIFIC T ABNORMALITY BORDERLINE ECG No previous ECG available for comparison
[2019-01-07 07:00] VITALS: BP 102/74
--- NOTE | 2019-01-07 08:02 | RAD ---
Examination: CT ANGIOGRAPHY HEAD AND NECK History: Right-sided weakness and numbness. Headache. Comparison/Correlation: 01/05/2019 CT head without contrast TECHNIQUE: Computed tomographic angiography of the head and neck was performed before and after the intravenous administration of IV contrast. Liver measures were provided. Three-dimensional reformatted reconstructions were also performed. Motion limits evaluation of the upper neck level. COMPARISON: 01/05/2019 CT head without contrast. FINDINGS: Angiographic findings: The aortic arch has a typical branching pattern. There is no arch vessel stenosis. Both common carotid arteries are patent without stenosis. Both internal carotid arteries are patent without stenosis. The external carotid systems are patent. The vertebral arteries are patent. The basilar artery is patent. Both posterior cerebral arteries are patent. The posterior communicating arteries are visualized. The intracranial internal carotid arteries demonstrate no stenosis. The middle cerebral arteries are patent. The anterior cerebral arteries are patent. The anterior communicating artery is visualized. Nonangiographic findings: There is no intracranial hemorrhage. Bridges-white differentiation is preserved. The ventricles are normal in size and position. The paranasal sinuses appear clear. The orbits are unremarkable. The temporal bones are unremarkable. Bone windows reveal no suspicious lesions. The lung apices demonstrate no acute abnormality. The parotid glands and submandibular glands are unremarkable. The thyroid gland demonstrates no suspicious lesions. There are no laryngeal or pharyngeal masses. There are no pathologically enlarged lymph nodes. Piercing is noted involving the right upper lip midline. IMPRESSION: Arterial vasculature is normal on this mildly limited exam with no significant stenosis, dissection, or aneurysm. PQRS Compliance Statement - Stenosis calculations for CT, MR and conventional angiography are based upon measurement of the distal ICA diameter in accordance with the NASCET methodology. Stenosis calculations for carotid ultrasound studies are derived from validated velocity criteria which are known to correlate with the NASCET methodology. *One or more of the following individualized dose reduction techniques were utilized for this examination: 1. Automated exposure control. 2. Adjustment of the mA and/or kV according to patient size. 3. Use of iterative reconstruction technique. Electronically signed by: Fish Cheung MD (01/07/2019 8:00 AM) [facility]
[2019-01-07] MEDS ORDERED: IBUPROFEN 200 MG TABLET. PO PRN (09:00)
[2019-01-07 11:00] VITALS: BP 106/61
--- NOTE | 2019-01-07 11:15 | PDOC ---
PROGRESS NOTES Assessment Problems Medical Problems: (1) Chest pain Status: Acute (2) Facial droop Status: Acute (3) Migraine Status: Acute (4) RUE weakness Status: Acute High suspicion for conversion reaction, keep in mind the possibility of migraine phenomenon, no sign of actual stroke. Left middle cranial fossa arachnoid cyst of no clinical significance Plan Simple analgesics for pain No further tests or treatment Hold on migraine treatment Discharge Follow-up with neurology as needed Outpatient psychiatric referral. Subjective Still has 7/10 headache, but wants to go home Objective Vital Signs Date Time Temp Pulse Resp B/P (MAP) Pulse Ox O2 Delivery O2 Flow Rate FiO2 01/07/19 08:00 Room Air 01/07/19 07:00 98.2 70 18 102/74 (83) 98 98.2 Intake and Output 01/07/19 06:59 Intake Total 0 ml Balance 0 ml Intake Oral 0 ml # Voids 2 PHYSICAL EXAM Alert. Oriented to time, place and person. PERRL. EOMI. CN: no focal findings. Muscle tone: normal. Muscle strength: 5/5 without pronator drift DTR: 2+ Plantar reflex: flexor Gait: not examined in bed. Sensory exam: still says that sensation is decreased on the right No cerebellar signs elicited. Review of Relevant I have reviewed the following items valerie (where applicable) has been applied. Labs Laboratory Tests Test 01/05/19 21:55 01/06/19 03:30 01/07/19 03:15 White Blood Count 7.4 x10^3/uL (4.0-11.0) 4.0 x10^3/uL (4.0-11.0) Red Blood Count 4.68 x10^6/uL (3.50-5.40) 4.16 x10^6/uL (3.50-5.40) Hemoglobin 14.3 g/dL (12.0-15.5) 12.6 g/dL (12.0-15.5) Hematocrit 41.7 % (36.0-47.0) 36.7 % (36.0-47.0) Mean Corpuscular Volume 89 fL (79-100) 88 fL (79-100) Mean Corpuscular Hemoglobin 31 pg (25-35) 30 pg (25-35) Mean Corpuscular Hemoglobin Concent 34 g/dL (31-37) 34 g/dL (31-37) Red Cell Distribution Width 13.0 % (11.5-14.5) 12.7 % (11.5-14.5) Platelet Count 317 x10^3/uL (140-400) 255 x10^3/uL (140-400) Neutrophils (%) (Auto) 57 % (31-73) 50 % (31-73) Lymphocytes (%) (Auto) 37 % (24-48) 42 % (24-48) Monocytes (%) (Auto) 5 % (0-9) 7 % (0-9) Eosinophils (%) (Auto) 1 % (0-3) 1 % (0-3) Basophils (%) (Auto) 1 % (0-3) 1 % (0-3) Neutrophils # (Auto) 4.2 x10^3/uL (1.8-7.7) 2.0 x10^3/uL (1.8-7.7) Lymphocytes # (Auto) 2.7 x10^3/uL (1.0-4.8) 1.7 x10^3/uL (1.0-4.8) Monocytes # (Auto) 0.4 x10^3/uL (0.0-1.1) 0.3 x10^3/uL (0.0-1.1) Eosinophils # (Auto) 0.1 x10^3/uL (0.0-0.7) 0.0 x10^3/uL (0.0-0.7) Basophils # (Auto) 0.0 x10^3/uL (0.0-0.2) 0.0 x10^3/uL (0.0-0.2) Sodium Level 140 mmol/L (136-145) 141 mmol/L (136-145) Potassium Level 3.3 mmol/L (3.5-5.1) 3.3 mmol/L (3.5-5.1) Chloride Level 101 mmol/L (98-107) 106 mmol/L (98-107) Carbon Dioxide Level 29 mmol/L (21-32) 25 mmol/L (21-32) Anion Gap 10 (6-14) 10 (6-14) Blood Urea Nitrogen 14 mg/dL (7-20) 10 mg/dL (7-20) Creatinine 0.7 mg/dL (0.6-1.0) 0.6 mg/dL (0.6-1.0) Estimated GFR (Cockcroft-Gault) 95.8 114.4 BUN/Creatinine Ratio 20 (6-20) 17 (6-20) Glucose Level 95 mg/dL (70-99) 85 mg/dL (70-99) Calcium Level 9.4 mg/dL (8.5-10.1) 8.4 mg/dL (8.5-10.1) Total Bilirubin 0.3 mg/dL (0.2-1.0) 0.6 mg/dL (0.2-1.0) Aspartate Amino Transf (AST/SGOT) 15 U/L (15-37) 12 U/L (15-37) Alanine Aminotransferase (ALT/SGPT) 18 U/L (14-59) 12 U/L (14-59) Alkaline Phosphatase 110 U/L (46-116) 83 U/L (46-116) Troponin I Quantitative < 0.017 ng/mL (0.000-0.055) < 0.017 ng/mL (0.000-0.055) Total Protein 8.4 g/dL (6.4-8.2) 6.7 g/dL (6.4-8.2) Albumin 4.3 g/dL (3.4-5.0) 3.3 g/dL (3.4-5.0) Albumin/Globulin Ratio 1.0 (1.0-1.7) 1.0 (1.0-1.7) Phosphorus Level 3.7 mg/dL (2.6-4.7) Magnesium Level 2.0 mg/dL (1.8-2.4) Triglycerides Level 160 mg/dL (0-150) Cholesterol Level 186 mg/dL (0-200) LDL Cholesterol, Calculated 119 mg/dL (0-100) VLDL Cholesterol, Calculated 32 mg/dL (0-40) Non-HDL Cholesterol Calculated 151 mg/dL (0-129) HDL Cholesterol 35 mg/dL (40-60) Cholesterol/HDL Ratio 5.3 Laboratory Tests Test 01/07/19 03:15 White Blood Count 4.0 x10^3/uL (4.0-11.0) Red Blood Count 4.16 x10^6/uL (3.50-5.40) Hemoglobin 12.6 g/dL (12.0-15.5) Hematocrit 36.7 % (36.0-47.0) Mean Corpuscular Volume 88 fL (79-100) Mean Corpuscular Hemoglobin 30 pg (25-35) Mean Corpuscular Hemoglobin Concent 34 g/dL (31-37) Red Cell Distribution Width 12.7 % (11.5-14.5) Platelet Count 255 x10^3/uL (140-400) Neutrophils (%) (Auto) 50 % (31-73) Lymphocytes (%) (Auto) 42 % (24-48) Monocytes (%) (Auto) 7 % (0-9) Eosinophils (%) (Auto) 1 % (0-3) Basophils (%) (Auto) 1 % (0-3) Neutrophils # (Auto) 2.0 x10^3/uL (1.8-7.7) Lymphocytes # (Auto) 1.7 x10^3/uL (1.0-4.8) Monocytes # (Auto) 0.3 x10^3/uL (0.0-1.1) Eosinophils # (Auto) 0.0 x10^3/uL (0.0-0.7) Basophils # (Auto) 0.0 x10^3/uL (0.0-0.2) Sodium Level 141 mmol/L (136-145) Potassium Level 3.3 mmol/L (3.5-5.1) Chloride Level 106 mmol/L (98-107) Carbon Dioxide Level 25 mmol/L (21-32) Anion Gap 10 (6-14) Blood Urea Nitrogen 10 mg/dL (7-20) Creatinine 0.6 mg/dL (0.6-1.0) Estimated GFR (Cockcroft-Gault) 114.4 BUN/Creatinine Ratio 17 (6-20) Glucose Level 85 mg/dL (70-99) Calcium Level 8.4 mg/dL (8.5-10.1) Total Bilirubin 0.6 mg/dL (0.2-1.0) Aspartate Amino Transf (AST/SGOT) 12 U/L (15-37) Alanine Aminotransferase (ALT/SGPT) 12 U/L (14-59) Alkaline Phosphatase 83 U/L (46-116) Total Protein 6.7 g/dL (6.4-8.2) Albumin 3.3 g/dL (3.4-5.0) Albumin/Globulin Ratio 1.0 (1.0-1.7) Triglycerides Level 160 mg/dL (0-150) Cholesterol Level 186 mg/dL (0-200) LDL Cholesterol, Calculated 119 mg/dL (0-100) VLDL Cholesterol, Calculated 32 mg/dL (0-40) Non-HDL Cholesterol Calculated 151 mg/dL (0-129) HDL Cholesterol 35 mg/dL (40-60) Cholesterol/HDL Ratio 5.3 Medications Current Medications Ketorolac Tromethamine (Toradol 30mg Vial) 30 mg 1X ONCE IV Last administered on 01/06/19at 00:22; Start 01/06/19 at 00:15; Stop 01/06/19 at 00:17; Status DC Metoclopramide HCl (Reglan Vial) 10 mg 1X ONCE IV Last administered on 01/06/19at 00:22; Start 01/06/19 at 00:15; Stop 01/06/19 at 00:17; Status DC Diphenhydramine HCl (Benadryl) 25 mg 1X ONCE IVP Last administered on 01/06/19at 00:22; Start 01/06/19 at 00:15; Stop 01/06/19 at 00:17; Status DC Lorazepam (Ativan Inj) 2 mg STK-MED ONCE .ROUTE ; Start 01/06/19 at 00:35; Stop 01/06/19 at 00:35; Status DC Lorazepam (Ativan Inj) 1 mg 1X ONCE IV Last administered on 01/06/19at 00:43; Start 01/06/19 at 00:45; Stop 01/06/19 at 00:46; Status DC Sodium Chloride 1,000 ml @ 1,000 mls/hr 1X ONCE IV Last administered on 01/06/19at 00:44; Start 01/06/19 at 00:45; Stop 01/06/19 at 01:44; Status DC Ondansetron HCl (Zofran) 4 mg PRN Q8HRS PRN IV NAUSEA/VOMITING; Start 01/06/19 at 02:00; Stop 01/07/19 at 01:59; Status DC Acetaminophen (Tylenol) 650 mg PRN Q4HRS PRN PO FEVER; Start 01/06/19 at 02:00; Stop 01/07/19 at 01:59; Status DC Aspirin (Latanya Aspirin) 325 mg 1X ONCE PO Last administered on 01/06/19at 03:00; Start 01/06/19 at 02:00; Stop 01/06/19 at 02:01; Status DC Influenza Virus Vaccine Quadrival (Afluria Quad 2019-20 (3yr Up) Syringe) 0.5 ml ONCE ONCE VAX IM ; Start 01/06/19 at 09:00; Stop 01/06/19 at 09:01; Status DC Info (FLU VACCINE SCREEN per RX) 1 each PRN 1X PRN MC SEE COMMENTS; Start 01/06/19 at 05:30; Status Cancel Ketorolac Tromethamine (Toradol 30mg Vial) 30 mg PRN Q6HRS PRN IV PAIN Last administered on 01/06/19at 21:25; Start 01/06/19 at 11:00; Stop 01/11/19 at 10:59 Diazepam (Valium) 10 mg 1X ONCE PO Last administered on 01/06/19at 13:13; Start 01/06/19 at 11:45; Stop 01/06/19 at 11:51; Status DC Iohexol (Omnipaque 300 Mg/ml) 75 ml 1X ONCE IV Last administered on 01/06/19at 18:25; Start 01/06/19 at 12:15; Stop 01/06/19 at 12:16; Status DC Info (CONTRAST GIVEN -- Rx MONITORING) 1 each PRN DAILY PRN MC SEE COMMENTS; Start 01/06/19 at 12:15; Stop 01/08/19 at 12:14 Acetaminophen (Tylenol) 500 mg PRN Q6HRS PRN PO MILD PAIN / TEMP; Start 01/07/19 at 09:00 Ibuprofen (Motrin) 600 mg PRN Q6HRS PRN PO INFLAMMATION/MODERATE PAIN; Start 01/07/19 at 09:00 Active Scripts Active Reported [no home meds] Vitals/I & O Vital Sign - Last 24 Hours 01/06/19 01/06/19 01/06/19 01/06/19 11:57 15:46 19:37 20:15 Temp 98.5 98.3 98.4 98.5 98.3 98.4 Pulse 80 77 72 Resp 18 18 18 B/P (MAP) 95/60 (72) 104/63 (77) 118/74 (89) Pulse Ox 100 100 97 O2 Delivery Room Air Room Air Room Air Room Air 01/06/19 01/07/19 01/07/19 01/07/19 23:06 03:21 07:00 08:00 Temp 98.2 97.9 98.2 98.2 97.9 98.2 Pulse 69 68 70 Resp 16 18 18 B/P (MAP) 111/64 (80) 106/65 (79) 102/74 (83) Pulse Ox 97 98 98 O2 Delivery Room Air Room Air Room Air Room Air Intake and Output 01/06/19 01/06/19 01/07/19 14:59 22:59 06:59 Intake Total 0 ml 0 ml 0 ml Balance 0 ml 0 ml 0 ml Images MRI brain: The scalp and calvarium are normal. The superior sagittal sinus demonstrates normal venous flow. The corpus callosum is normal in shape and signal intensity. The posterior fossa is unremarkable. The pituitary and sella are normal. The brainstem and craniocervical junction are unremarkable. There is suggestion of an extra-axial cyst involving the left mild cranial fossa measuring 2.5 x 2.6 x 2.4 cm (AP by transverse by craniocaudal). This finding demonstrates CSF signal intensity on all sequences suggestive of an arachnoid cyst. There is mild volume loss involving the left ventral temporal lobe. Diffusion weighted images reveal no hyperintensities to suggest acute cerebral infarction. The susceptibility weighted sequences reveal no evidence of acute or chronic hemorrhage. The ventricles are normal in size and position without evidence of hydrocephalus. Mild mucosal thickening of the maxillary sinuses. The visualized portions of the mastoids are unremarkable. The orbits appear normal. Normal flow voids are demonstrated in the carotid arteries and basilar artery. IMPRESSION: 1. No evidence for acute or subacute ischemia. 2. Small extra-axial cyst in the left middle cranial fossa, most suggestive of an arachnoid cyst. CTA: Angiographic findings: The aortic arch has a typical branching pattern. There is no arch vessel stenosis. Both common carotid arteries are patent without stenosis. Both internal carotid arteries are patent without stenosis. The external carotid systems are patent. The vertebral arteries are patent. The basilar artery is patent. Both posterior cerebral arteries are patent. The posterior communicating arteries are visualized. The intracranial internal carotid arteries demonstrate no stenosis. The middle cerebral arteries are patent. The anterior cerebral arteries are patent. The anterior communicating artery is visualized. Nonangiographic findings: There is no intracranial hemorrhage. Bridges-white differentiation is preserved. The ventricles are normal in size and position. The paranasal sinuses appear clear. The orbits are unremarkable. The temporal bones are unremarkable. Bone windows reveal no suspicious lesions. The lung apices demonstrate no acute abnormality. The parotid glands and submandibular glands are unremarkable. The thyroid gland demonstrates no suspicious lesions. There are no laryngeal or pharyngeal masses. There are no pathologically enlarged lymph nodes. Piercing is noted involving the right upper lip midline. IMPRESSION: Arterial vasculature is normal on this mildly limited exam with no significant stenosis, dissection, or aneurysm. NAEEM GIORDANO MD Jan 07, 2019 11:15
[2019-01-07] MEDS ORDERED: ALPR0.25 PO (11:37)
--- NOTE | 2019-01-07 11:40 | PDOC3 ---
Discharge Summary Visit Information Date of Admission: Jan 06, 2019 Date of Discharge: Jan 07, 2019 Admitting Diagnosis Comment: anxiety NOS Final Diagnosis Problems Medical Problems: (1) Chest pain Status: Acute (2) Facial droop Status: Acute (3) Migraine Status: Acute (4) RUE weakness Status: Acute Brief Hospital Course Allergies Allergies Coded Allergies Type Severity Reaction Last Updated Verified No Known Drug Allergies 02/20/14 No Vital Signs Vital Signs Date Time Temp Pulse Resp B/P (MAP) Pulse Ox O2 Delivery O2 Flow Rate FiO2 01/07/19 08:00 Room Air 01/07/19 07:00 98.2 70 18 102/74 (83) 98 98.2 Lab Results Laboratory Tests Test 01/05/19 21:55 01/06/19 03:30 01/07/19 03:15 White Blood Count 7.4 x10^3/uL (4.0-11.0) 4.0 x10^3/uL (4.0-11.0) Red Blood Count 4.68 x10^6/uL (3.50-5.40) 4.16 x10^6/uL (3.50-5.40) Hemoglobin 14.3 g/dL (12.0-15.5) 12.6 g/dL (12.0-15.5) Hematocrit 41.7 % (36.0-47.0) 36.7 % (36.0-47.0) Mean Corpuscular Volume 89 fL (79-100) 88 fL (79-100) Mean Corpuscular Hemoglobin 31 pg (25-35) 30 pg (25-35) Mean Corpuscular Hemoglobin Concent 34 g/dL (31-37) 34 g/dL (31-37) Red Cell Distribution Width 13.0 % (11.5-14.5) 12.7 % (11.5-14.5) Platelet Count 317 x10^3/uL (140-400) 255 x10^3/uL (140-400) Neutrophils (%) (Auto) 57 % (31-73) 50 % (31-73) Lymphocytes (%) (Auto) 37 % (24-48) 42 % (24-48) Monocytes (%) (Auto) 5 % (0-9) 7 % (0-9) Eosinophils (%) (Auto) 1 % (0-3) 1 % (0-3) Basophils (%) (Auto) 1 % (0-3) 1 % (0-3) Neutrophils # (Auto) 4.2 x10^3/uL (1.8-7.7) 2.0 x10^3/uL (1.8-7.7) Lymphocytes # (Auto) 2.7 x10^3/uL (1.0-4.8) 1.7 x10^3/uL (1.0-4.8) Monocytes # (Auto) 0.4 x10^3/uL (0.0-1.1) 0.3 x10^3/uL (0.0-1.1) Eosinophils # (Auto) 0.1 x10^3/uL (0.0-0.7) 0.0 x10^3/uL (0.0-0.7) Basophils # (Auto) 0.0 x10^3/uL (0.0-0.2) 0.0 x10^3/uL (0.0-0.2) Sodium Level 140 mmol/L (136-145) 141 mmol/L (136-145) Potassium Level 3.3 mmol/L (3.5-5.1) 3.3 mmol/L (3.5-5.1) Chloride Level 101 mmol/L (98-107) 106 mmol/L (98-107) Carbon Dioxide Level 29 mmol/L (21-32) 25 mmol/L (21-32) Anion Gap 10 (6-14) 10 (6-14) Blood Urea Nitrogen 14 mg/dL (7-20) 10 mg/dL (7-20) Creatinine 0.7 mg/dL (0.6-1.0) 0.6 mg/dL (0.6-1.0) Estimated GFR (Cockcroft-Gault) 95.8 114.4 BUN/Creatinine Ratio 20 (6-20) 17 (6-20) Glucose Level 95 mg/dL (70-99) 85 mg/dL (70-99) Calcium Level 9.4 mg/dL (8.5-10.1) 8.4 mg/dL (8.5-10.1) Total Bilirubin 0.3 mg/dL (0.2-1.0) 0.6 mg/dL (0.2-1.0) Aspartate Amino Transf (AST/SGOT) 15 U/L (15-37) 12 U/L (15-37) Alanine Aminotransferase (ALT/SGPT) 18 U/L (14-59) 12 U/L (14-59) Alkaline Phosphatase 110 U/L (46-116) 83 U/L (46-116) Troponin I Quantitative < 0.017 ng/mL (0.000-0.055) < 0.017 ng/mL (0.000-0.055) Total Protein 8.4 g/dL (6.4-8.2) 6.7 g/dL (6.4-8.2) Albumin 4.3 g/dL (3.4-5.0) 3.3 g/dL (3.4-5.0) Albumin/Globulin Ratio 1.0 (1.0-1.7) 1.0 (1.0-1.7) Phosphorus Level 3.7 mg/dL (2.6-4.7) Magnesium Level 2.0 mg/dL (1.8-2.4) Triglycerides Level 160 mg/dL (0-150) Cholesterol Level 186 mg/dL (0-200) LDL Cholesterol, Calculated 119 mg/dL (0-100) VLDL Cholesterol, Calculated 32 mg/dL (0-40) Non-HDL Cholesterol Calculated 151 mg/dL (0-129) HDL Cholesterol 35 mg/dL (40-60) Cholesterol/HDL Ratio 5.3 Laboratory Tests Test 01/07/19 03:15 White Blood Count 4.0 x10^3/uL (4.0-11.0) Red Blood Count 4.16 x10^6/uL (3.50-5.40) Hemoglobin 12.6 g/dL (12.0-15.5) Hematocrit 36.7 % (36.0-47.0) Mean Corpuscular Volume 88 fL (79-100) Mean Corpuscular Hemoglobin 30 pg (25-35) Mean Corpuscular Hemoglobin Concent 34 g/dL (31-37) Red Cell Distribution Width 12.7 % (11.5-14.5) Platelet Count 255 x10^3/uL (140-400) Neutrophils (%) (Auto) 50 % (31-73) Lymphocytes (%) (Auto) 42 % (24-48) Monocytes (%) (Auto) 7 % (0-9) Eosinophils (%) (Auto) 1 % (0-3) Basophils (%) (Auto) 1 % (0-3) Neutrophils # (Auto) 2.0 x10^3/uL (1.8-7.7) Lymphocytes # (Auto) 1.7 x10^3/uL (1.0-4.8) Monocytes # (Auto) 0.3 x10^3/uL (0.0-1.1) Eosinophils # (Auto) 0.0 x10^3/uL (0.0-0.7) Basophils # (Auto) 0.0 x10^3/uL (0.0-0.2) Sodium Level 141 mmol/L (136-145) Potassium Level 3.3 mmol/L (3.5-5.1) Chloride Level 106 mmol/L (98-107) Carbon Dioxide Level 25 mmol/L (21-32) Anion Gap 10 (6-14) Blood Urea Nitrogen 10 mg/dL (7-20) Creatinine 0.6 mg/dL (0.6-1.0) Estimated GFR (Cockcroft-Gault) 114.4 BUN/Creatinine Ratio 17 (6-20) Glucose Level 85 mg/dL (70-99) Calcium Level 8.4 mg/dL (8.5-10.1) Total Bilirubin 0.6 mg/dL (0.2-1.0) Aspartate Amino Transf (AST/SGOT) 12 U/L (15-37) Alanine Aminotransferase (ALT/SGPT) 12 U/L (14-59) Alkaline Phosphatase 83 U/L (46-116) Total Protein 6.7 g/dL (6.4-8.2) Albumin 3.3 g/dL (3.4-5.0) Albumin/Globulin Ratio 1.0 (1.0-1.7) Triglycerides Level 160 mg/dL (0-150) Cholesterol Level 186 mg/dL (0-200) LDL Cholesterol, Calculated 119 mg/dL (0-100) VLDL Cholesterol, Calculated 32 mg/dL (0-40) Non-HDL Cholesterol Calculated 151 mg/dL (0-129) HDL Cholesterol 35 mg/dL (40-60) Cholesterol/HDL Ratio 5.3 Brief Hospital Course Ms. 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), came in for RT sided headache and RT sided weakness but neg MRI brain and neg CTA head and neck, Seen by neuro, advised OP psych, SHe was honest with me and claIMs likely stress related - anxiety, I rxd xanax with educn about its side effects consults: neuro PRoc; brain imaging Dc < 30 dispo: home independent Discharge Information Condition at Discharge: Improved, Stable Disposition/Orders: D/C to Home Scheduled PRN Alprazolam (Xanax) 0.25 Mg Tablet, 0.25 MG PO PRN Q6HRS PRN for ANXIETY / AGITATION for 30 Days, #30 Ref 0 Prescribed by: LESLI PARRA on 01/07/19 1137 Miscellaneous Medications [no home meds] , (Reported) Entered as Reported by: STEPH CLIFFORD on 01/06/19 7965 Last Action: HELD on 01/07/19 0900 by LESLI PABLO MD Jan 07, 2019 11:40
--- NOTE | 2019-01-07 12:04 | NUR ---
SW consulted for OP referral for stress reaction. Chart reviewed and [place] [facility] met with pt with an chimney supervisor brick and provided her [place] [facility] [place], walk in clinic and crisis hotline number. Pt is also provided with [facility] information. Discussed with RN.
[2019-01-07] MEDS: ACETAMINOPHEN 500 MG TABLET PO PRN ×2 (12:15→12:19)
--- NOTE | 2019-01-07 12:51 | NUR ---
Discharge Note: YUNI WATKINS [address] [place] [address] Discharge instructions and discharge home medications reviewed with Patient and a copy given. All questions have been answered and understanding verbalized. The following instructions and handouts were given: FOLLOW UP INSTRUCTIONS, MEDICATION LISTS, AND ACTIVITY LEVELS. Discontinued lines and drains: PERIPHERAL IV DISCONTINUED. Patient discharged to Home or Self Care with Family Member via [facility].
== END 2019-01-07 12:50 | disposition home or self-care (01) | DRG 880 ==
LOC: ER 21:46 → 6 SOUTH 01-06 02:07 → OBSVTOIN 01-06 11:51
PROVIDERS: ADMIT Internal Medicine; ATTEND Internal Medicine
DX: F41.9 Anxiety disorder, unspecified (principal); G43.109 Migraine with aura, not intractable, without status migrainosus; G93.0 Cerebral cysts; E87.6 Hypokalemia; Z82.49 Family history of ischemic heart disease and other diseases of the circulatory system; Z86.32 Personal history of gestational diabetes; Z98.51 Tubal ligation status; Z83.3 Family history of diabetes mellitus; Z79.899 Other long term (current) drug therapy
CPT/HCPCS: 36415; 70450; 70496; 70498; 70551; 80053; 80061; 83735; 84100; 84484; 85025; 93005; 96374; 96375; G0378; G0379; J1200; J1885; J2060; J2765; J7030; Q9967; 97116; 97530; 99285-25

== ENCOUNTER 2019-01-21 13:52 | Emergency (ER) | payer SELFPAY ==
[~2019-01-21] VITALS: Ht 160 cm; Wt 66.7 kg
[~2019-01-21 13:52] MED LIST: ALPR0.25 PO; no home meds
[2019-01-21 14:44] VITALS: BP 110/62
[2019-01-21] MEDS ORDERED: HYDR25TA PO (14:48)
--- NOTE | 2019-01-21 14:49 | PHYS DOC ---
Past Medical History Past Medical History: Anxiety, Other Additional Past Medical Histor: gestational diabetes Past Surgical History: Tubal ligation Alcohol Use: Rarely Drug Use: None Adult General Chief Complaint Chief Complaint: ANXIETY/PANIC ATTACK [facility] HPI Patient is a 33 year old Haitian speaking female who presents with complaining of anxiety. Patient was diagnosed with left facial Harris's palsy recently and developed anxiety and panic attack after facial droop. She was seen by psychiatric and treated with Xanax several days ago and sertraline 4 days ago but she has had problem with Zoloft and feeling hot inside and unable to sleep and called her psychiatrist and recommended to continue the medication. Patient denies suicidal or homicidal ideation and hallucination. Review of Systems Review of Systems Constitutional: Denies fever or chills [] Eyes: Denies change in visual acuity, redness, or eye pain [] HENT: Denies nasal congestion or sore throat [] Respiratory: Denies cough or shortness of breath [] Cardiovascular: No additional information not addressed in HPI [] GI: Denies abdominal pain, nausea, vomiting, bloody stools or diarrhea [] : Denies dysuria or hematuria [] Musculoskeletal: Denies back pain or joint pain [] Integument: Denies rash or skin lesions [] Neurologic: Denies headache, focal weakness or sensory changes [] Endocrine: Denies polyuria or polydipsia [] All other systems were reviewed and found to be within normal limits, except as documented in this note. Allergies Allergies Allergies Coded Allergies Type Severity Reaction Last Updated Verified No Known Drug Allergies 01/21/19 No Physical Exam Physical Exam Constitutional: Well developed, well nourished, mild distress, non-toxic appearance. [] HENT: Normocephalic, atraumatic. Left side Harris's palsy Eyes: PERRLA, EOMI, conjunctiva normal, no discharge. [] Neck: Normal range of motion, no tenderness, supple, no stridor. [] Cardiovascular:Heart rate regular rhythm, no murmur [] Lungs & Thorax: Bilateral breath sounds clear to auscultation [] Extremities: No tenderness, no cyanosis, no clubbing, ROM intact, no edema. [] Neurologic: Alert and oriented X 3, no focal deficits noted. [] Psychologic: Affect depressed, judgement normal, mood normal. [] Current Patient Data Vital Signs Vital Signs Date Time Temp Pulse Resp B/P (MAP) Pulse Ox O2 Delivery O2 Flow Rate FiO2 01/21/19 14:01 98.6 94 24 130/74 (92) 98 Room Air 98.6 EKG EKG [] Radiology/Procedures Radiology/Procedures [] Course & Med Decision Making Course & Med Decision Making Evaluation of patient in ER showed 33-year-old female patient with resent diagnosis of Harris's palsy and anxiety secondary to her facial droop with complaining of side effect of Zoloft and insomnia. Patient was advised to stop taking Zoloft because it was started on 4 days ago. Prescription for hydroxyzine was given and patient was advised to follow-up with her primary care physician for facial physical therapy. Dragon Disclaimer Dragon Disclaimer This electronic medical record was generated, in whole or in part, using a voice recognition dictation system. Departure Departure Impression: Primary Impression: Anxiety Additional Impressions: Harris's palsy Insomnia Disposition: HOME, SELF-CARE (at 1443) Condition: STABLE Referrals: NO PCP (PCP) Patient Instructions: Anxiety and Panic Attacks, Harris's Palsy, Insomnia Additional Instructions: Drink plenty of liquids Follow-up with your primary care physician in 3-5 days for referral for physical therapy for Harris's palsy Return to ER if not getting better Stop taking sertraline Scripts Hydroxyzine Hcl (HYDROXYZINE HCL) 25 Mg Tablet 1 TAB PO QHS PRN for INSOMNIA, #14 TAB Prov: YOSHI ANGEL MD 01/21/19 Problem Qualifiers Additional Impressions: Insomnia Insomnia type: unspecified Qualified Codes: G47.00 - Insomnia, unspecified YOSHI ANGEL MD Jan 21, 2019 14:49
== END 2019-01-21 15:09 | disposition home or self-care (01) ==
LOC: ER 13:52
DX: F41.9 Anxiety disorder, unspecified (principal); G51.0 Bell's palsy; G47.00 Insomnia, unspecified; Z98.51 Tubal ligation status
CPT/HCPCS: 99284